=== PATIENT | female | born 1985 | race Caucasian/White ===

== ENCOUNTER → 2023-09-17 14:37 | Outpatient (REF) | payer BC, SELFPAY | LOC: WDC 14:37 | PROVIDERS: ATTENDING PHYSICIAN Nurse Practitioner Adult Health | DX: Z12.31 Encounter for screening mammogram for malignant neoplasm of breast (principal) | CPT/HCPCS: 77063; 77067 ==

== ENCOUNTER → 2024-06-29 11:20 | Outpatient (REF) | payer BC, SELFPAY | LOC: PNTC 11:20 | PROVIDERS: ATTENDING PHYSICIAN Obstetrics & Gynecology | DX: Z36.0 Encounter for antenatal screening for chromosomal anomalies (principal); Z36.82 Encounter for antenatal screening for nuchal translucency | CPT/HCPCS: 36415; 76801; 76813 ==

== ENCOUNTER → 2024-07-26 14:54 | Outpatient (REF) | payer BC, SELFPAY | LOC: PNTC 14:54 | PROVIDERS: ATTENDING PHYSICIAN Obstetrics & Gynecology | DX: O14.90 Unspecified pre-eclampsia, unspecified trimester (principal); Z87.59 Personal history of other complications of pregnancy, childbirth and the puerperium | CPT/HCPCS: 76805 ==

== ENCOUNTER → 2024-08-21 13:51 | Outpatient (REF) | payer BC, SELFPAY | LOC: PNTC 13:51 | PROVIDERS: ATTENDING PHYSICIAN Obstetrics & Gynecology | DX: Z87.59 Personal history of other complications of pregnancy, childbirth and the puerperium (principal); O24.012 Pre-existing type 1 diabetes mellitus, in pregnancy, second trimester; O99.212 Obesity complicating pregnancy, second trimester; O09.522 Supervision of elderly multigravida, second trimester | CPT/HCPCS: 76811; 76817 ==

== ENCOUNTER → 2024-09-20 14:54 | Outpatient (REF) | payer BC, SELFPAY | LOC: PNTC 14:54 | PROVIDERS: ATTENDING PHYSICIAN Student in an Organized Health Care Education/Training Program | DX: O09.819 Supervision of pregnancy resulting from assisted reproductive technology, unspecified trimester (principal); O99.210 Obesity complicating pregnancy, unspecified trimester; O14.00 Mild to moderate pre-eclampsia, unspecified trimester; E10.9 Type 1 diabetes mellitus without complications | CPT/HCPCS: 76816 ==

== ENCOUNTER → 2024-10-17 14:54 | Outpatient (REF) | payer BC, SELFPAY | LOC: PNTC 14:54 | PROVIDERS: ATTENDING PHYSICIAN Student in an Organized Health Care Education/Training Program | DX: O24.019 Pre-existing type 1 diabetes mellitus, in pregnancy, unspecified trimester (principal); O09.819 Supervision of pregnancy resulting from assisted reproductive technology, unspecified trimester; O99.210 Obesity complicating pregnancy, unspecified trimester; Z87.59 Personal history of other complications of pregnancy, childbirth and the puerperium | CPT/HCPCS: 76816 ==

== ENCOUNTER 2024-11-15 18:24 | Observation (INO) | payer BC, SELFPAY ==
[2024-11-15 18:49] VITALS: BP 144/87; BMI 42.9
[2024-11-15 19:44] LABS: Hematocrit 32.3 % (37.0-47.0); Hemoglobin 10.7 g/dL (12.0-16.0); Mean Corp Hgb Conc. 33.1 g/dL (33.0-37.0); Mean Corpuscular Volume 83.5 fL (81.0-99.0); Platelet Count 165 10^3/uL (130-400); Red Cell Dist. Width 15.9 % (11.5-14.5)
[2024-11-15 20:01] LABS: ALT (SGPT) 15 U/L (0-35); AST (SGOT) 23 U/L (14-36); Albumin 3.0 g/dl (3.5-5.0); Alkaline Phosphatase 87 U/L (38-126); Blood Urea Nitrogen 14 mg/dl (7-17); Calcium 8.6 mg/dl (8.4-10.2); Carbon Dioxide 19 mmol/L (22-30); Chloride 109 mmol/L (98-107); Estimated Creatinine Clearance > 125 ml/min; Glucose 102 mg/dl (70-99); Potassium 4.3 mmol/L (3.5-5.1); Sodium 131 mmol/L (135-145); Total Protein 5.6 g/dl (6.3-8.2); eGFR > 60.00
== END 2024-11-16 07:04 | disposition home or self-care (01) ==
LOC: LDRP 18:24
PROVIDERS: ADMITTING PHYSICIAN Student in an Organized Health Care Education/Training Program
DX: O13.3 Gestational [pregnancy-induced] hypertension without significant proteinuria, third trimester (principal); O24.013 Pre-existing type 1 diabetes mellitus, in pregnancy, third trimester; E10.8 Type 1 diabetes mellitus with unspecified complications; Z3A.33 33 weeks gestation of pregnancy; O09.813 Supervision of pregnancy resulting from assisted reproductive technology, third trimester; O09.523 Supervision of elderly multigravida, third trimester; O99.283 Endocrine, nutritional and metabolic diseases complicating pregnancy, third trimester; E03.9 Hypothyroidism, unspecified; O99.213 Obesity complicating pregnancy, third trimester; Z14.8 Genetic carrier of other disease; Z79.4 Long term (current) use of insulin; Z96.41 Presence of insulin pump (external) (internal); Z80.0 Family history of malignant neoplasm of digestive organs; Z83.3 Family history of diabetes mellitus
CPT/HCPCS: 80053; 82570; 84156; 85027; 86850; 86900; 86901; G0378

== ENCOUNTER → 2024-11-20 14:43 | Outpatient (REF) | payer BC, SELFPAY | LOC: PNTC 14:43 | PROVIDERS: ATTENDING PHYSICIAN Student in an Organized Health Care Education/Training Program | DX: O09.819 Supervision of pregnancy resulting from assisted reproductive technology, unspecified trimester (principal); O24.019 Pre-existing type 1 diabetes mellitus, in pregnancy, unspecified trimester; O14.90 Unspecified pre-eclampsia, unspecified trimester; O99.210 Obesity complicating pregnancy, unspecified trimester | CPT/HCPCS: 59025; 76816 ==

== ENCOUNTER → 2024-11-23 14:17 | Outpatient (REF) | payer BC, SELFPAY | LOC: PNTC 14:17 | PROVIDERS: ATTENDING PHYSICIAN Student in an Organized Health Care Education/Training Program | DX: O14.90 Unspecified pre-eclampsia, unspecified trimester (principal); O09.819 Supervision of pregnancy resulting from assisted reproductive technology, unspecified trimester; O99.210 Obesity complicating pregnancy, unspecified trimester; O24.019 Pre-existing type 1 diabetes mellitus, in pregnancy, unspecified trimester | CPT/HCPCS: 59025 ==

== ENCOUNTER 2024-11-25 02:57 | Inpatient (IN) | payer BC, SELFPAY ==
[2024-11-25 03:17] VITALS: BMI 44.5
[2024-11-25 03:26] VITALS: BP 164/102
[2024-11-25 04:24] LABS: Glucose - Point of Care 114 mg/dl (70-99)
[2024-11-25] MEDS: CELESTONE SOLUSPAN 2 MG IM (04:43)
[2024-11-25 04:45] LABS: Hematocrit 33.5 % (37.0-47.0); Hemoglobin 10.9 g/dL (12.0-16.0); Mean Corp Hgb Conc. 32.5 g/dL (33.0-37.0); Mean Corpuscular Volume 83.8 fL (81.0-99.0); Platelet Count 150 10^3/uL (130-400); Red Cell Dist. Width 16.6 % (11.5-14.5)
[2024-11-25 04:53] LABS: ALT (SGPT) 11 U/L (0-35); AST (SGOT) 18 U/L (14-36); Albumin 2.8 g/dl (3.5-5.0); Alkaline Phosphatase 94 U/L (38-126); Blood Urea Nitrogen 16 mg/dl (7-17); Calcium 8.7 mg/dl (8.4-10.2); Carbon Dioxide 22 mmol/L (22-30); Chloride 111 mmol/L (98-107); Estimated Creatinine Clearance > 125 ml/min; Glucose 112 mg/dl (70-99); Potassium 4.1 mmol/L (3.5-5.1); Sodium 134 mmol/L (135-145); Total Protein 5.3 g/dl (6.3-8.2); eGFR > 60.00
[2024-11-25 04:55] LABS: Urine Character Clear (Clear)
[2024-11-25 05:24] LABS: Urine Squamous Cell 16-20 /LPF (Few)
[2024-11-25 05:25] LABS: Urine Red Blood Cell None Seen /HPF (0-2)
[2024-11-25] MEDS: MAGNESIUM SULFATE 100 IV (05:43)
[2024-11-25] MEDS: NSS 1000 IV ×2 (05:45→22:45)
[2024-11-25] MEDS: TRANDATE 20 MG IV (06:01)
[2024-11-25] MEDS: MAGNESIUM SULFATE 40 GRAM 1000 IV (06:07)
[2024-11-25] MEDS: TYLENOL 975 MG PO (06:12)
[2024-11-25] MEDS: BICITRA 30 ML PO (06:13)
[2024-11-25 09:04] LABS: Hematocrit 32.0 % (37.0-47.0); Hemoglobin 10.6 g/dL (12.0-16.0); Platelet Count 164 10^3/uL (130-400)
[2024-11-25 09:23] LABS: INR 0.99; PT 13.4 Sec (11.4-14.6)
[2024-11-25 09:41] LABS: Fibrinogen 388 MG/DL (199-459)
[2024-11-25 13:17] LABS: Glucose - Point of Care 105 mg/dl (70-99)
[2024-11-25 17:48] LABS: Glucose - Point of Care 207 mg/dl (70-99)
[2024-11-25] MEDS: SYNTHROID PO (18:57)
[2024-11-25] MEDS: COLACE 100 MG PO (22:13)
[2024-11-25] MEDS: TYLENOL 650 MG PO (22:14)
[2024-11-25] MEDS: FEOSOL 325 MG PO (22:14)
[2024-11-25 22:20] LABS: Glucose - Point of Care 291 mg/dl (70-99)
[2024-11-26] MEDS: MAGNESIUM SULFATE 40 GRAM 1000 IV (01:49)
[2024-11-26] MEDS: SYNTHROID 88 MCG PO (05:53)
[2024-11-26] MEDS: MOTRIN 600 MG PO ×2 (06:33→16:19)
[2024-11-26] MEDS: TYLENOL 650 MG PO ×3 (06:34→20:48)
[2024-11-26 06:40] LABS: Hematocrit 25.6 % (37.0-47.0); Hemoglobin 8.5 g/dL (12.0-16.0); Mean Corp Hgb Conc. 33.2 g/dL (33.0-37.0); Mean Corpuscular Volume 84.5 fL (81.0-99.0); Platelet Count 171 10^3/uL (130-400); Red Cell Dist. Width 16.5 % (11.5-14.5)
[2024-11-26 08:08] LABS: Glucose - Point of Care 105 mg/dl (70-99)
[2024-11-26] MEDS: FEOSOL 325 MG PO ×2 (08:43→19:48)
[2024-11-26] MEDS: COLACE 100 MG PO ×2 (08:43→19:48)
[2024-11-26] MEDS: PRENATAL PLUS 1 TABLET PO (08:43)
[2024-11-26] MEDS: ROXICODONE 5 MG PO (08:43)
[2024-11-26] MEDS: NSS IV (12:07)
[2024-11-26] MEDS: ROXICODONE 10 MG PO ×3 (12:43→21:19)
[2024-11-26 13:44] LABS: Glucose - Point of Care 137 mg/dl (70-99)
[2024-11-26] MEDS: MYLICON 80 MG PO (16:20)
--- NOTE | 2024-11-26 16:37 | W.PN.ANS.POP ---
Anesthesia Post Operative
- Anesthesia Post Op Note
Vital Signs Stable-See Nursing Note: Yes
Airway Patent: Yes
Adequate Pain Control: Yes
Change in Mental Status: No
Current Postoperative Nausea & Vomiting: No
Anesthesia Complications: No
General Anesthetic Recall: No
Unplanned Admission: No
Post Op Hydration Adequate: Yes
[2024-11-26 19:44] LABS: Glucose - Point of Care 147 mg/dl (70-99)
[2024-11-27] MEDS: MOTRIN 600 MG PO ×4 (00:43→21:22)
[2024-11-27] MEDS: TYLENOL 650 MG PO ×2 (00:43→05:38)
[2024-11-27 00:59] LABS: Glucose - Point of Care 142 mg/dl (70-99)
[2024-11-27] MEDS: ROXICODONE 10 MG PO ×3 (03:34→21:22)
[2024-11-27] MEDS: SYNTHROID 88 MCG PO (05:38)
--- NOTE | 2024-11-27 07:48 | PN.DE.MGMTRT ---
Insulin Management
- -
11/27/2024: Diabetes Consult for insulin pump management
39 year old female with PMH: T1DM, PCOS, Obesity and hypothyroidism. Admitted on 11/25 for preeclampsia with severe features at 34W2D. She underwent emergent on 11/25 and delivered a viable female infant. Prior to admission she was
using a Tandem t-slim (Humalog insulin) with control IQ pump and Dexcom G6 CGM. Routinely sees Jazmin GRIFFIN at [facility] for diabetes care.
Patient is awake, alert, oriented, sitting up @ edge of bed, able to discuss diabetes care plan. at bedside.
She is currently using her 3rd trimester profile that is only ~1.1 units of insulin more than her pre- profile.
Her pump settings are as follows:
Basal CF ICR Target
12am-6am 1.15 1:25 1:5 110
6am- 9am 1.35 1:25 1:5 110
9am- 3:30pm 1.35 1:25 1:3 110
3:30-8:30pm 1.5 1:25 1:3 110
8:30-12am 1.4 1:25 1:2.5 110
Total daily basal 32.125 units. Active insulin 5 hours
Cont Accucheks ACHS and at 3am. Pt has insulin pump worksheet at bedside. She is independent with carb counting and administering bolus insulin with meals
Will cont to follow and adjust pump settings if necessary.
Diabetes History
- -
Type of Diabetes: 1
Pre-Admission Diabetes Regimen
Insulin Pump Settings
IP Diabetes Regimen
11/26/24 11/26/24 11/26/24
08:06 13:33 19:41
POC Glucose 105 H 137 H 147 H
11/27/24
00:57
POC Glucose 142 H
Patient Education
[2024-11-27] MEDS: COLACE 100 MG PO ×2 (08:36→19:45)
[2024-11-27] MEDS: PROCARDIA XL (EXTENDED RELEASE) 30 MG PO ×2 (08:36→18:04)
[2024-11-27] MEDS: FEOSOL 325 MG PO ×2 (08:36→19:45)
[2024-11-27] MEDS: PRENATAL PLUS 1 TABLET PO (08:36)
[2024-11-27] MEDS: ROXICODONE 5 MG PO ×2 (08:38→08:48)
[2024-11-27 08:47] LABS: Glucose - Point of Care 98 mg/dl (70-99)
[2024-11-27 14:05] LABS: Glucose - Point of Care 160 mg/dl (70-99)
[2024-11-27 19:50] LABS: Glucose - Point of Care 153 mg/dl (70-99)
[2024-11-27] MEDS: PT'S OWN INSULIN PUMP - HumaLOG 16.66 UNIT SC (19:50)
[2024-11-28] MEDS: PT'S OWN INSULIN PUMP - HumaLOG 1.55 UNIT SC (00:25)
[2024-11-28 00:28] LABS: Glucose - Point of Care 146 mg/dl (70-99)
[2024-11-28] MEDS: MYLICON 80 MG PO (00:41)
[2024-11-28] MEDS: SYNTHROID 88 MCG PO (05:38)
[2024-11-28] MEDS: MOTRIN 600 MG PO (05:38)
[2024-11-28] MEDS: TYLENOL 650 MG PO (05:38)
[2024-11-28] MEDS: COLACE 100 MG PO (07:36)
[2024-11-28] MEDS: PROCARDIA XL (EXTENDED RELEASE) 60 MG PO (07:36)
[2024-11-28] MEDS: FEOSOL 325 MG PO (07:36)
[2024-11-28] MEDS: PRENATAL PLUS 1 TABLET PO (07:38)
[2024-11-28] MEDS: SENOKOT 17.2 MG PO (07:45)
--- NOTE | 2024-11-28 07:56 | PN.DE.MGMTRT ---
Insulin Management
- -
11/28/2024: Diabetes Consult for insulin pump management
39 year old female with PMH: T1DM, PCOS, Obesity and hypothyroidism. Admitted on 11/25 for preeclampsia with severe features at 34W2D. She underwent emergent on 11/25 and delivered a viable female infant. Prior to admission she was
using a Tandem t-slim (Humalog insulin) with control IQ pump and Dexcom G6 CGM. Routinely sees Jazmin GRIFFIN at [facility] for diabetes care.
Patient is awake, alert, oriented, sitting up @ edge of bed, able to discuss diabetes care plan. at bedside, very supportive.
She is currently using her 3rd trimester profile that is only ~1.1 units of insulin more than her pre- profile.
Her pump settings are as follows:
Basal CF ICR Target
12am-6am 1.15 1:25 1:5 110
6am- 9am 1.35 1:25 1:5 110
9am- 3:30pm 1.35 1:25 1:3 110
3:30-8:30pm 1.5 1:25 1:3 110
8:30-12am 1.4 1:25 1:2.5 110
Total daily basal 32.125 units. Active insulin 5 hours
Cont Accucheks ACHS and at 3am. Pt has insulin pump worksheet at bedside. She is independent with carb counting and administering bolus insulin with meals
Will cont to follow and adjust pump settings if necessary.
Patient will resume her pre- insulin delivery settings today.
Diabetes History
- -
Type of Diabetes: 1
Pre-Admission Diabetes Regimen
Insulin Pump Settings
IP Diabetes Regimen
11/27/24 11/27/24 11/27/24
08:41 14:00 19:48
POC Glucose 98 160 H 153 H
11/28/24
00:26
POC Glucose 146 H
Patient Education
[2024-11-28] MEDS: PT'S OWN INSULIN PUMP - HumaLOG 9.6 UNIT SC (08:30)
[2024-11-28 08:53] LABS: Glucose - Point of Care 92 mg/dl (70-99)
--- NOTE | 2024-11-28 09:20 | W.DS.TRANS ---
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
-
Discharge Instructions:
Discharge Diagnosis/Procedures 34.5wks delivered by primary LTCS;
preeclampsia severe features
Diet Regular
Activity No strenuous activity
Driving Restrictions No driving for 2 weeks
Bathing Restrictions OK to Shower
Instructions:
Stand-Alone Forms: LDRP Delivery
LDRP Hypertensive Disorders
Changes to Home Medications: No
Discharge Medications:
DC Medications w/original date entered in [employer]
insulin lispro 100 unit/mL subcutaneous cartridge (Humalog U-100 Insulin) 1 sliding scale dose SC DIRECTED Diabetes 01/20/22
levothyroxine 100 mcg tablet 88 mcg PO DAILY Thyroid 01/20/22
prenat.vits,prasanth,[id number] 1 tab PO DAILY Supplement 01/20/22
Metamucil Gummies 1 tab PO PRN PRN constipation 01/26/22
ferrous sulfate 325 mg (65 mg iron) tablet (FeroSul) 325 mg PO BID #90 tabs 02/02/22
ibuprofen 600 mg tablet 600 mg PO Q6HPRN PRN cramps #90 tabs 11/28/24
nifedipine 60 mg tablet,extended release 60 mg PO DAILY #42 tabs 11/28/24
oxycodone 5 mg tablet 5 mg PO Q4HPRN PRN moderate pain #12 tabs 11/28/24
Home Medication Changes
Pending Results: No
Total time spent discharging patient (in min): 15
[2024-11-28] MEDS: ROXICODONE 5 MG PO (09:44)
[2024-11-28 15:21] LABS: Syphilis/T. pallidum Ab Reflex Negative (Negative)
== END 2024-11-28 13:43 | disposition home or self-care (01) | DRG 788 ==
LOC: LDRP 02:57
PROVIDERS: ADMITTING PHYSICIAN Obstetrics & Gynecology
PROC: 10D00Z1 Extraction of Products of Conception, Low, Open Approach (ICD-10-PCS; 2024-11-25)
DX: O14.14 Severe pre-eclampsia complicating childbirth (principal); Z37.0 Single live birth; Z3A.34 34 weeks gestation of pregnancy; O34.211 Maternal care for low transverse scar from previous cesarean delivery; O24.02 Pre-existing type 1 diabetes mellitus, in childbirth; O72.1 Other immediate postpartum hemorrhage; O90.81 Anemia of the puerperium; D50.0 Iron deficiency anemia secondary to blood loss (chronic); O99.284 Endocrine, nutritional and metabolic diseases complicating childbirth; E03.9 Hypothyroidism, unspecified; E66.01 Morbid (severe) obesity due to excess calories; O99.214 Obesity complicating childbirth; Z96.41 Presence of insulin pump (external) (internal); Z79.4 Long term (current) use of insulin; Z79.82 Long term (current) use of aspirin
CPT/HCPCS: 80053; 81003; 81015; 82570; 82962; 84156; 85014; 85018; 85027; 85049; 85384; 85610; 86780; 86850; 86900; 86901; 88307

== ENCOUNTER 2024-12-15 22:01 | Inpatient (IN) | payer BC, SELFPAY ==
[2024-12-15 17:19] VITALS: BP 167/98
[2024-12-15 17:47] VITALS: BP 159/93
[2024-12-15 18:00] VITALS: BP 156/91
[2024-12-15 18:02] LABS: Urine Character Clear (Clear)
[2024-12-15 18:03] LABS: Hematocrit 35.6 % (37.0-47.0); Hemoglobin 11.2 g/dL (12.0-16.0); Mean Corp Hgb Conc. 31.5 g/dL (33.0-37.0); Mean Corpuscular Volume 85.2 fL (81.0-99.0); Nucleated Red Blood Cells % 0 %; Platelet Count 294 10^3/uL (130-400); Red Cell Dist. Width 16.3 % (11.5-14.5)
[2024-12-15 18:15] LABS: Urine Squamous Cell >30 /LPF (Few)
[2024-12-15 18:19] LABS: ALT (SGPT) 46 U/L (0-35); AST (SGOT) 45 U/L (14-36); Albumin 4.3 g/dl (3.5-5.0); Alkaline Phosphatase 111 U/L (38-126); Blood Urea Nitrogen 12 mg/dl (7-17); Calcium 9.1 mg/dl (8.4-10.2); Carbon Dioxide 23 mmol/L (22-30); Chloride 103 mmol/L (98-107); Glucose 183 mg/dl (70-99); Potassium 4.6 mmol/L (3.5-5.1); Sodium 135 mmol/L (135-145); Total Protein 7.2 g/dl (6.3-8.2); eGFR > 60.00
[2024-12-15] MEDS: NSS 1000 IV ×2 (18:28→20:15)
[2024-12-15] MEDS: TYLENOL 1000 MG PO (18:56)
[2024-12-15 19:06] VITALS: BP 147/84
--- NOTE | 2024-12-15 19:20 | ED.GENMED ---
History of Present Illness
General
Chief Complaint: Problems
Source: patient and spouse
Exam Limitations: none
Time Seen by Provider: 12/15/24 17:56
History of Present Illness
History of Present Illness:
39-year-old female came in primarily for right lower to mid back pain. Relatively sudden onset today. Has had dizziness the last week. Some mild chills at home. No urinary symptoms no abdominal pain no respiratory symptoms. Patient is 3 weeks
. She had history of preeclampsia. She is on nifedipine. Also diabetic. Blood sugars have been reasonable.
Past History
Past History
ED Past Medical History: IDDM and Other (Christianne's)
ED Past Surgical History: Appendectomy and Gynecological
Social History
Tobacco: Non-smoker
Alcohol: None
Drug: None
Personal:
Living: with family
Review of Systems
Review of Systems
All Other Systems: Not applicable
Constitutional: Reports chills; Denies fever
Respiratory: Reports no symptoms
ABD/GI: Denies abdominal pain
: Denies dysuria, frequency or urgency
Phy Exam
Physical Exam
Physical Exam:
GENERAL: Alert and oriented in no apparent distress
EYE: Orbits normal.
NECK: Supple, no significant adenopathy.
ENT: Pharynx without erythema
CARDIAC: Mildly tachycardic and regular no murmur
LUNGS: Clear breath sounds,normal. Breast exam within normal limits. No mastitis
ABDOMEN: Soft, without focal tenderness or distention. Well-healing incision. Minimal erythema to the right suture line but no drainage no fluctuance no tenderness. No CVA tenderness
NEUROLOGICAL: Alert and oriented , grossly non-focal
SKIN: Warm and dry, no rash or lesion, no discoloration, skin intact.
MUSCULOSKELETAL: No edema,no deformity.Good color
PSYCH: Normal and appropriate interaction.
Sepsis
Sepsis Screening
Sepsis Assessment: Sepsis
Sepsis Screen
Sepsis Screen: Sepsis
Date: 12/16/24
Time: 16:50
Course
Orders/Labs/Results
Orders:
Orders
12/15/24 17:27
CONSULT Urgent
Comment: 3 weeks post
12/15/24 17:59
CMP [Comprehensive Metabolic Panel] Urgent
Complete Blood Count/With Diff Urgent
Free T4 Urgent
TSH Reflex To Free T4 Urgent
Comment: ADD ON
Urinalysis Reflex To Culture Urgent
Date Specimen was Collected: 12/15/24
Time Specimen was Collected: 17:29
Urine Microscopic Reflex Cult Urgent
Urine Culture Urgent
JACKELINE Source: U
Specimen Description:
Date Specimen was Collected: 12/15/24
Time Specimen was Collected: 17:29
12/15/24 18:12
CT Head W/o Iv Contrast Urgent
Comment:
Reason For Exam: headache/preeclampsia history
IV Insert/Care/Rem.- Treatment PRN
0.9% Sodium Chloride 1000 ml [Nss] 1,000 ml IV BOLUS
12/15/24 18:52
Acetaminophen [Tylenol] 1,000 mg PO NOW STA
12/15/24 18:53
CT Abd/Pel (IV only)-DH only Urgent
Comment:
Reason For Exam: Back pain/fever
12/15/24 18:54
Add On- LAB Urgent
Tests Added?: tsh reflex t4
CXR2 [CR Chest - 2 Views ] Urgent
Comment:
Reason For Exam: Fever/back pain
12/15/24 19:02
COVID-19 Antigen Urgent
Source: Nasal Swab
Lactic Acid Q4H
Comment: CANCEL 2nd LACTIC ACID IF 1st LACTIC ACID IS LESS THAN 2
Blood Culture Q30M
JACKELINE Source: Blood/Venous
Specimen Description:
Blood Culture Q30M
JACKELINE Source: Blood/Venous
Specimen Description:
12/15/24 19:23
0.9% Sodium Chloride 1000 ml [Nss] 1,000 ml IV BOLUS
Piperacillin/Tazo 4.5 Gram [Zosyn] 4.5 gram in 100 ml IV NOW
12/15/24 20:27
Urinalysis Reflex To Culture Urgent
Date Specimen was Collected: 12/15/24
Time Specimen was Collected: 20:22
Urine Microscopic Reflex Cult Urgent
Urine Culture Urgent
JACKELINE Source: U
Specimen Description:
Date Specimen was Collected: 12/15/24
Time Specimen was Collected: 20:22
12/15/24 20:33
Lyme Progressive Urgent
Babesia Smear [Blood Parasites] Urgent
JACKELINE Source: Blood/Venous
Specimen Description:
12/15/24 21:06
US Pelvis Only (non-obstetric) Urgent
Comment:
Reason For Exam: eval CT suggestion of retained products
12/15/24 21:29
Admit/Transfer Patient As Directed
Co-Sign Provider:
Level of Care: Inpatient admission
Assign to:: Medical/Surgical
Physician / Group: Hospitalist
Diagnosis: Fever and back pain
Reason for Hospitalization: Fever and back pain post
Expected length of stay greater than two midnights?: Yes
ELOS- Estimated Length of Stay in days: 3
I certify the patient meets the requirements for IP care: Yes
PRN Pain Medication Management As Directed
May give lesser potent ordered pain med per pt: Yes
preference::
Protocol:: Medication orders for pain may be administered in a
manner that supports deferring to patient preference
when the pt is:
- Requesting an ordered lesser potent pain medication.
Least to most potent pain medications are defined
as: acetaminophen < NSAID < tramadol < opioids
(morphine, oxycodone, hydromorphone).
- Requesting a lesser dose of the same medication IF
ORDERED.
- Requesting a less intrusive route of administration
if both routes are prescribed by the provider (PO <
IV).
12/15/24 21:32
Code Status As Directed
Resuscitation Status: Full Code
12/15/24 22:38
Acetaminophen [Tylenol] 650 mg PO Q4HPRN PRN
Bisacodyl [Dulcolax] 10 mg RECTAL [id number] PRN
Docusate W/Senna [Senokot-S] 1 tablet PO BIDPRN PRN
Ibuprofen [Motrin] 600 mg PO Q6HPRN PRN cramps
Oxycodone [Roxicodone] 5 mg PO Q4HPRN PRN moderate pain
Polyethylene Glycol Powder [Miralax] 17 grams PO DAILYPRN PRN
12/15/24 22:38
Activity As Directed
Activity Level: Ambulate
Pneumatic Compression Sleeves As Directed
Type: Knee high
Vital Signs As Directed
Frequency: Per unit guidelines
DX Deep Vein Thrombosis Video Routine
12/15/24 22:49
Psyllium [Metamucil, Konsyl] 1 packet PO DAILYPRN PRN
12/16/24 02:00
Piperacillin/Tazo 4.5 Gram [Zosyn] 4.5 gram in 100 ml IV Q6H
12/16/24 Breakfast
Regular
At Your Request: Full Participation
Does patient need a safe tray?: No
Levothyroxine [Synthroid] 88 mcg PO DAILY @ 0600
12/16/24 07:51
Complete Blood Count/No Diff IN AM
12/16/24 08:00
Ferrous Sulfate [Feosol] 325 mg PO BID
NIFEdipine EXTENDED RELEASE [Procardia Xl (Extended Release)] 60 mg PO DAILY
MULTIPLE VITAMIN w/FE [ Plus] 1 tablet PO DAILY
Abnormal Lab Results
12/15/24 12/15/24
17:59 20:27
WBC 11.6 H 10^3/uL
(4.8-10.8)
RBC 4.18 L 10^6/uL
(4.20-5.40)
Hgb 11.2 L g/dL
(12.0-16.0)
Hct 35.6 L %
(37.0-47.0)
MCH 26.8 L pg
(27.0-31.0)
MCHC 31.5 L g/dL
(33.0-37.0)
RDW 16.3 H %
(11.5-14.5)
MPV 11.2 H fL
(7.4-10.4)
Absolute Neuts (auto) 9.5 H 10^3/uL
(1.4-6.5)
Neutrophils % 82.1 H %
(42.2-75.2)
Lymphocytes % 12.8 L %
(20.5-51.1)
Glucose 183 H mg/dl
(70-99)
AST 45 H U/L
(14-36)
ALT 46 H U/L
(0-35)
TSH (Reflex) 0.03 L uIU/ml
(0.47-4.68)
Ur Occult Blood Reflex 4+ A 4+ A
(Negative) (Negative)
Leukocyte Esterase Rfl 1+ A
(Negative)
Urine RBC 11-15 A /HPF 3-6 A /HPF
(0-2) (0-2)
Urine WBC (Reflex) 26-30 A /HPF
(0-5)
Urine Bacteria (Reflex) Moderate A Moderate A
(Negative) (Negative)
Urine Glucose 1+ A
(Negative)
Urine Albumin (Reflex) 1+ A
(Neg - Trace)
12/15/24 17:59
12/15/24 17:59
Vital Signs
Initial and Last Documented VS:
Initial Vital Signs
Temp Pulse Resp BP Pulse Ox
98.8 F 92 18 167/98 100
12/15/24 17:19 12/15/24 17:19 12/15/24 17:19 12/15/24 17:19 12/15/24 17:19
Last Documented Vital Signs
Temp Pulse Resp BP Pulse Ox
98.7 F 106 16 130/79 97
12/16/24 15:30 12/16/24 15:30 12/16/24 15:30 12/16/24 15:30 12/16/24 15:30
Information
Weeks gestation: N/A
Location: N/A
MDM/Problems Addressed
Differential Diagnosis Includes:
Initially was more concerned about the possibility of preeclamptic issue or vascular emergency given the sudden mid back pain and . Initially was not truly describing infectious issues. However on recheck like if temp to 102.9 this
clearly becomes an infectious issue. She has no respiratory symptoms her abdomen is nontender. Suspicious of either an endometritis or urologic issue. Patient current receiving fluids. Received Tylenol. Sent to CT scan. Will cover with Zosyn
to start. Clearly requires admission.
*Radiology
Radiology exam reviewed: radiology read reviewed (Negative head CT. Right nephric cyst with some edema and stranding)
*Pulse Oximetry
SaO2: 98
Oxygen Mode of Delivery: Room air
Patient hypoxic: no
*Cloth Hand Interpretation
Rate: tachycardiac
Interpretation: abnormal
Heart Rate: 140
Rhythm: sinus
*Critical Care Note
Total Time (30-74mins, 75-104mins- exclusive of procedures): 45
Data Reviewed
Review of Other/Old Records Reveals: Labs, Records and Testing
Update Note
Update Note:
Not convinced that the cyst is the explanation for this fever and tachycardia. Patient is clinically nontoxic but significant tachycardia secondary to fever and infectious source. No mastitis. Abdomen is benign. Incision appears well. Urine is
likely contaminated but likely negative. I did order repeat urine. She has no respiratory symptoms. Will cover with Zosyn. Vancomycin would likely be safe with breast-feeding but low suspicion for MRSA issues. Will hold on that for now
ED Attending Note
-
Portions of this chart may have been created with voice recognition software.� Occasional wrong word or��sound alike� substitutions may have occurred due to the inherent limitations of voice recognition software.
Discharge Plan
Departure
Patient Disposition: Admit
Date of Disposition: 12/15/24
Time of Disposition: 20:20
Presentation/result/management discussed w/ accepting MD/DO: Celestine
Discharge Problem:
Back pain fever, , Suspect pyelonephritis
Interventions
Interventions:
*Risk Screen - Suicide Last Done: 12/15/24 17:22
*Neglect/Abuse Screening Last Done: 12/15/24 17:22
*ED COVID-19 Vaccine History Last Done: 12/16/24 00:01
*Nursing Disposition Last Done: 12/15/24 22:25
ED-Female Genitourinary Assessment Last Done: 12/15/24 18:02
Discharge Date and Time
Discharge Date/Time: 12/15/24 22:25
[2024-12-15 19:28] LABS: COVID-19 Antigen Negative (Negative)
[2024-12-15] MEDS: ZOSYN 100 IV (20:15)
[2024-12-15 20:45] LABS: Urine Character Clear (Clear)
[2024-12-15 20:58] LABS: Urine Squamous Cell >30 /LPF (Few)
[2024-12-15 21:00] VITALS: BP 127/73
[2024-12-15 21:00] LABS: Urine White Cell 26-30 /HPF (0-5)
--- NOTE | 2024-12-15 21:20 | HPS.HSE ---
Family Physician
-
Family Physician: NAZARIO Elizabeth
Chief Complaint
-
Back pain
History of Present Illness
39-year-old woman with right lower to mid back pain. This had sudden onset today and she had dizziness last week. Also reports mild chills at home. No urinary symptoms no abdominal pain no respiratory symptoms. Patient is 3 weeks .
She had history of preeclampsia. She is on nifedipine. She is a IDDM diabetic. Blood sugars have been reasonable. At the time of my interview, she was comfortable. Her baby in in the NICU.
Medical History
Past Medical History
Past Medical History: Reports Other
Additional Past Medical History:
IDDM, has CGM and pump
Christianne's
Appendectomy
Diabetes Type 1
Hypothyroidism
Obesity
egg retrieval
breast cyst
breast cyst abscess
preeclampsia
Past Surgical History: Reports Other
Additional Past Surgical History:
See above
Social History
Tobacco: Non-smoker
Alcohol: None
Drug: None
Personal:
Living: With Family
Family History
Family History: Not pertinent
Allergies / Home Medications
Allergies reflects when Allergies were last updated in [employer].
Home Medications with original date entered in [employer]
Allergy/Medication List:
Allergies
Allergy/AdvReac Type Severity Reaction Status Date / Time
No Known Allergies Allergy Verified 11/25/24 03:20
Home Medications
insulin lispro 100 unit/mL subcutaneous cartridge (Humalog U-100 Insulin) 1 sliding scale dose SC DIRECTED Diabetes 01/20/22
levothyroxine 100 mcg tablet 88 mcg PO DAILY Thyroid 01/20/22
prenat.vits,prasanth,[id number] 1 tab PO DAILY Supplement 01/20/22
Metamucil Gummies 1 tab PO PRN PRN constipation 01/26/22
ferrous sulfate 325 mg (65 mg iron) tablet (FeroSul) 325 mg PO BID #90 tabs 02/02/22
ibuprofen 600 mg tablet 600 mg PO Q6HPRN PRN cramps #90 tabs 11/28/24
nifedipine 60 mg tablet,extended release 60 mg PO DAILY #42 tabs 11/28/24
oxycodone 5 mg tablet 5 mg PO Q4HPRN PRN moderate pain #12 tabs 11/28/24
Review of Systems
-
A 12 point ROS was completed and negative except as noted: Yes
Constitutional: Reports No Symptoms
Musculoskeletal: Reports Other (back pain)
Physical Exam
Vital Signs
Vital Signs
Temp Pulse Resp BP Pulse Ox
102.5 F H 120 28 127/73 97
12/15/24 18:57 12/15/24 21:15 12/15/24 21:15 12/15/24 21:00 12/15/24 21:15
Physical Exam
General: Well Developed, Well Nourished, No Apparent Distress, Comfortable and Conversant
HEENT: Nose Appears Normal and Ears Appear Normal
Respiratory: Clear
Cardiac: S1/S2 and Regular Rhythm
GI: Soft, Non Tender and Non Distended
Musculoskeletal: No Clubbing, No Cyanosis and No Edema
Skin: Warm and Dry
Neuro: Awake, Alert, Oriented and AO x 3
Psych: Calm
Laboratory Results
-
12/15/24 17:59
12/15/24 17:59
Laboratory Results
Lactic Acid Cancelled 12/15/24 23:00
Total Bilirubin 0.6 mg/dl (0.2-1.3) 12/15/24 17:59
AST 45 U/L (14-36) H 12/15/24 17:59
ALT 46 U/L (0-35) H 12/15/24 17:59
Alkaline Phosphatase 111 U/L (38-126) 08/01/25 17:59
Data Reviewed
-
Lab Data: Labs Reviewed by me
Impression/Plan
-
IMPRESSION:
39 woman with fever and back pain after delivery. CT shows:
Two centimeter cyst arising from the posterior upper pole the right kidney.
Mild adjacent perinephric space edema, suggesting the possibility of partially ruptured cyst.
Enlarged uterus compatible with state.
Increased density within the lower uterine endometrial canal, likely within normal limits in this patient, but please correlate with any abnormal bleeding that would suggest retained products of conception.
PLAN:
1. Fever and back pain post - OBGYN involved in care. See CT results above, WBC 11.6
Post care and treatment of possible infection per OBGYN team
Management of breast milk per OBGYN team
On zosyn
Check labs in am
2. IDDM - with adequate control at this time
Patient may use own CGM and insulin pump
This may change if there is worsening infection
Code: Full
VCD for DVTp
[2024-12-15 22:42] VITALS: BMI 39.7
[2024-12-15 23:21] VITALS: BP 112/66
[2024-12-16 00:13] LABS: Glucose - Point of Care 130 mg/dl (70-99)
[2024-12-16] MEDS: ZOSYN 100 IV ×2 (02:21→09:01)
[2024-12-16] MEDS: SYNTHROID 88 MCG PO (06:06)
[2024-12-16] MEDS: TYLENOL 650 MG PO ×4 (06:11→19:25)
[2024-12-16 07:00] VITALS: BP 113/75
[2024-12-16 08:05] LABS: Glucose - Point of Care 131 mg/dl (70-99)
[2024-12-16 08:14] LABS: Hematocrit 29.6 % (37.0-47.0); Hemoglobin 9.4 g/dL (12.0-16.0); Mean Corp Hgb Conc. 31.8 g/dL (33.0-37.0); Mean Corpuscular Volume 84.8 fL (81.0-99.0); Platelet Count 213 10^3/uL (130-400); Red Cell Dist. Width 17.2 % (11.5-14.5)
[2024-12-16 08:32] LABS: Blood Urea Nitrogen 11 mg/dl (7-17); Calcium 8.6 mg/dl (8.4-10.2); Carbon Dioxide 26 mmol/L (22-30); Chloride 106 mmol/L (98-107); Estimated Creatinine Clearance > 125 ml/min; Glucose 128 mg/dl (70-99); Potassium 3.8 mmol/L (3.5-5.1); Sodium 135 mmol/L (135-145); eGFR > 60.00
--- NOTE | 2024-12-16 08:32 | CON.ID ---
Consultation
-
Date/Time Consultation Requested: December 16, 2024804
Date/Time Consultation Performed: December 16, 2024 0830
Requesting Provider: Dr. Su Andres
Performing Provider: Dr. Daysi Brasher
Reason for Consultation: , bacteremia
Chief Complaint / Past History
Chief Complaint
Acute back pain.
History of Present Illness
39-year-old female with history of diabetes mellitus type 1, PCOS, who is currently when she underwent unscheduled due to preeclampsia on November 25, 2024. She was doing well at home when yesterday she suddenly developed mid back
pain which then moved to the right flank. She reports recent urinary urgency with minimal urine output. Positive subjective fever. She presented to the ER December 15. She had shaking chills in the ER. Temperature was 102.5. White count 13. CT
of the abdomen and pelvis showed right renal cyst with mild adjacent perinephric spaces edema suggesting partially ruptured cyst, uterus with increased density within the lower uterine. She was started on Zosyn. Admission blood cultures
x 2 gram-negative rods. Patient reports no abdominal pain. This pelvic incision site is healing well. No diarrhea. No cough or shortness of breath. Breast is a little warm and she was seen by the nurse who ruled out mastitis and
recommend that she must pump for breast milk regularly. Her is in the NICU, planning for discharge today.
Past History
Additional Past Medical History:
Diabetes mellitus type I
Hypothyroidism
PCOS
Class III obesity
hx pre-eclampsia
x2, most recent November 25, 2024
Appendectomy
Allergy History:
No Known Allergies Allergy (Verified 11/25/24 03:20)
Medications Reviewed: Yes
Current Antibiotics:
Zosyn
Social History
Tobacco: Non-Smoker
Alcohol: None
Drug: None
Personal:
Living: With Family
Family History
Family History: Not Pertinent
Review of Systems
Review of Systems
General: Fever and Change in Appetite
HEENT: Negative Sinus Problems, Headache or Pharyngitis
Cardiovascular: Negative Chest Pain
Respiratory: Negative Dyspnea or Cough
Gasteroenterology: Negative Nausea, Vomiting or Diarrhea
Genital / Urological: Flank Pain (right)
Endocrine: Negative Weakness
Skin / Hair / Nails: Negative Rash
All systems: All other systems were reviewed and were negative
Vital Signs
Temp Pulse Resp BP Pulse Ox
99.6 F 108 18 112/66 97
12/16/24 06:00 12/15/24 23:21 12/15/24 23:21 12/15/24 23:21 12/15/24 23:21
Selected Entries
12/15/24
18:57
Temp 102.5 F H
Physical Exam
Physical Exam
Constitutional: No Acute Distress and Comfortable
Eyes: No Conjunctival Hemorrhage and Sclera Anicteric
Cardiovascular: Regular Rate and S1/S2
Pulmonary: Clear
Gastrointestinal: Soft, Non Tender, Non Distended and Normal Bowel Sounds
Genito-Urinary: CVA Tenderness (Right, mild)
Extremities: Negative Edema
Wound: Other (low pelvis incsion site dry, no surrounding erythema)
Neurological: AO x 3
Lab / Diagnostic Study Results
12/16/24 07:51
Abs Immat Gran (auto) 0.0 10^3/uL (0-0.05) 12/15/24 17:59
Absolute Neuts (auto) 9.5 10^3/uL (1.4-6.5) H 12/15/24 17:59
Absolute Lymphs (auto) 1.5 10^3/uL (1.2-3.4) 12/15/24 17:59
Absolute Monos (auto) 0.4 10^3/uL (0.1-0.6) 12/15/24 17:59
Absolute Basos (auto) 0.1 10^3/uL (0-0.2) 12/15/24 17:59
Immature Gran % 0.3 % (0-0.5) 12/15/24 17:59
Neutrophils % 82.1 % (42.2-75.2) H 12/15/24 17:59
Lymphocytes % 12.8 % (20.5-51.1) L 12/15/24 17:59
Monocytes % 3.5 % (1.7-9.3) 12/15/24 17:59
Eosinophils % 0.9 % (0-6) 12/15/24 17:59
Basophils % 0.4 % (0-2) 12/15/24 17:59
Lactic Acid Cancelled 12/15/24 23:00
Ur Squamous Epith Cells >30 /LPF (Few) 12/15/24 20:27
Microbiology Results
Micro:
12/16/24 07:51 Blood Parasites Smear - Pending
Blood/Venous
12/15/24 19:02 Blood Culture - Preliminary
Blood/Venous Positive culture in progress
Gram Stain - Final
12/15/24 19:02 Blood Culture - Preliminary
Blood/Venous Positive culture in progress
Gram Stain - Final
12/15/24 20:27 Urine Culture - Pending
Urine
12/15/24 17:59 Urine Culture - Pending
Urine
12/15/24 Transvaginal US: Within the lower uterine segment canal and extending into the superior cervical canal, ovoid complex predominately hypoechoic collection, which is likely complex fluid
12/15/24 CXR: No evidence of active cardiopulmonary disease.
12/15/24 CT a/P: Two centimeter cyst arising from the posterior upper pole the right kidney. Mild adjacent perinephric space edema, suggesting the possibility of partially ruptured cyst. Enlarged uterus compatible with state. Increased
density within the lower uterine endometrial canal, likely within normal limits in this patient, but please correlate with any abnormal bleeding that would suggest retained products of conception.
Assessment / Plan
# Complicated UTI/R pyelo
# GNR bacteremia
# Fever
# Leukocytosis
# Post- C section 11/25/24
# DM1
- Repeat blood cx's in am
- De-escalate Zosyn to ceftriaxone.
- Trend temps/wbc
Care Review
Plan reviewed with: Nurse
[2024-12-16] MEDS: FEOSOL 325 MG PO ×2 (09:01→19:17)
[2024-12-16] MEDS: PRENATAL PLUS 1 TABLET PO (09:01)
[2024-12-16] MEDS: PROCARDIA XL (EXTENDED RELEASE) 60 MG PO (09:02)
--- NOTE | 2024-12-16 09:40 | LACTATION ---
Celine complains of breast tenderness and warm to the touch on the left. she had been pumping 7 times per day and she hasn't pumped in over 12 hours. she says the last time she pumped she only collected a very small amount of milk. I palpated her
breast and found that there was lumpiness and slightly warm to the touch. this is expected given she is overdue to pump. I sat with her while she pumped. she collected about 3 oz. from left breast and 1 oz. from right breast. this is a typical
amount for her. the small lumps in her breasts were no longer palpable after pumping.
she may notice decreased milk output for the remainder of the day or next few days because she missed so many pumping sessions in the past 24 hours.
she is currently taking zosyn which is rated L2 (probably compatible with ) by [email or web address]
--- NOTE | 2024-12-16 10:00 | W.PN.HOSP.TC ---
Today's Communication/Plan
-
IV AB
Watch
Assessment / Plan
Assessment / Plan
39 y/o female with right lower to mid back pain. Started on 12/15/2024 also with some chills. She is 3 weeks . History of preeclampsia on nifedipine.
Patient delivered at 34.5 weeks by transverse section for preeclampsia. Discharged on 11/28/2024. Patient had mild back discomfort for the past couple of days yesterday stress really bad more towards a right flank area. When asked if she
had urinary symptoms states that she had increased frequency and she has been drinking more water
Transvaginal ultrasound-within the lower uterine segment canal and extending to the superior cervical canal ovoid complex predominantly hypoechoic collection likely complex fluid likely represent blood products within the endometrial canal
Transabdominal USS- Enlarged uterus. Poor visualization.Hypoechoic region within the central lower uterine segment, suggestive of fluid. No increase in vascularity by color flow.Neither ovary is able to be visualized. No evidence for abnormal
adnexal mass or free pelvic fluid.
Chest x-ray unremarkable
CT abdomen pelvis-2 cm cyst arising from the posterior upper pole of the right kidney. Mild adjacent perinephric space edema suggestive of possible partially ruptured cyst. Enlarged uterus compatible with state increased density within
the uterine endometrial canal possible retained products of conception
Head CT-no acute changes
Awake alert oriented nontoxic-appearing
Cardiovascular system S1-S2 appreciated
Chest clear to auscultation
Abdomen soft, mild discomfort in the right flank area with palpation
NO rashes
# Sepsis present on admission with Gram-negative bacteremia now
Source likely urinary source pyelonephritis on the right side she has mild CVA tenderness
Zosyn changed to Ceftriaxone
Repeat blood cultures added
Abnormal urine analysis noted but urine culture pending
Infectious disease consultation
# 3 weeks -issues with decreased milk production. it consultant and WIRELINE FIELD OPERATOR consulted . She just pumped 4 ounces now.
Patient denies any abnormal or foul-smelling discharge
# Preeclampsia-continue nifedipine and follow blood pressures
# Anemia- Likely Postpartom - check iron and B12 studies
# Diabetes-hemoglobin [id number] on
Patient has an insulin pump
Accu-Cheks
Basal rate is
12 AM-1 unit/h
3 AM-1.04 units/h
6 AM-1.34 units/h
3:30 PM 1.5 units/h
8:30 PM 1.3 units/h
Carb counting ratio for breakfast 1 : 4, for lunch 1:3, 8:30 PM 1:3, 12 AM 1:6.
Monitor blood sugars AC and at bedtime
# Hypothyroidism-continue levothyroxine 88 mcg daily
History of Christianne thyroiditis
# Slight elevation of LFTS- Likely from sepsis- Watch and follow
# PCOS
# Obesity with a BMI of 39
# DVT prophylaxis-Lovenox
# Full code
D/W ObGyn
Discussed with infectious disease
D/W RN
Part of this note was created using voice recognition system. Occasional wrong word or��sound alike� substitutions may have inadvertently occurred due to the inherent limitations of voice recognition software. If noted kindly bring it to my
attention for correction.
Anticipated Discharge: 24 - 48 hours
Subjective/Interval History
-
Date of Service: December 16, 2024
Objective Data
-
Labs:
Laboratory Results
12/16/24
07:51
WBC 11.5 H
Hgb 9.4 L
Hct 29.6 L
Plt Count 213 D
Sodium 135
Potassium 3.8
Chloride 106
Carbon Dioxide 26
BUN 11
Creatinine 0.6
Glucose 128 H
Calcium 8.6
Vital Signs:
Vital Signs
Temp Pulse Resp BP Pulse Ox
99 F 112 17 151/91 96
12/16/24 07:00 12/16/24 09:02 12/16/24 07:00 12/16/24 09:02 12/16/24 07:00
I&O
12/15/24 12/16/24 12/17/24
06:59 06:59 06:59
Intake Total 480 / 480
Balance 480 / 480
[2024-12-16] MEDS: PT'S OWN INSULIN PUMP - HumaLOG 8.77 UNIT SC (10:04)
[2024-12-16] MEDS: STERILE WATER FOR INJECTION 20 ML IV (10:10)
[2024-12-16] MEDS: ROCEPHIN 2000 MG IV (10:10)
[2024-12-16 10:37] LABS: ALT (SGPT) 35 U/L (0-35); AST (SGOT) 28 U/L (14-36); Albumin 3.2 g/dl (3.5-5.0); Alkaline Phosphatase 80 U/L (38-126); Total Protein 5.7 g/dl (6.3-8.2)
[2024-12-16 10:55] LABS: Glycohemoglobin (HgbA1c) 6.0 % (4.0-5.6)
[2024-12-16 13:13] LABS: Glucose - Point of Care 221 mg/dl (70-99)
--- NOTE | 2024-12-16 14:08 | CON.MD ---
Consultation - Medical
-
Consult:
HPI: Patient is a 39yo s/p RLTCS on 11/25 for preeclampsia with severe features who presented to the ED with complaints of right sided back pain. She said she had back pain for a few days and then it suddenly got worse. She was also having
dizziness. While waiting in the ED, she says she suddenly developed fevers and chills. She has no abdominal pain, her incision has been healing well with no signs of infection. She said she had difficulty pumping yesterday, but has been fine today
and has no signs of mastitis. Her lochia has been minimal to mild with no clots. She has had intermittent headaches but they are relieved by Tylenol. She denies vision changes, chest pain, shortness of breath or RUQ pain. The baby is in the NICU and
is likely going to be discharged today or tomorrow. In the ED, she was febrile with a Tmax of 102.5. She had a white count with left shift and was tachycardic, meeting criteria for sepsis. Prelim blood cultures positive for E coli. CT showed a
ruptured cyst of the right kidney. Pelvic ultrasound with complex fluid in the endometrial canal, likely representing blood products.
PMHx: Type 1DM, hypothyroidism, PCOS, obesity, PEC w/ SF
Meds: insulin pump, Synthroid, PNV, iron, Procardia 60 XL qD
Surghx: C/Sx2, appendectomy, wisdom teeth, IVF
NKDA
Socialhx: denies tobacco, etoh or illicit drug use
Famhx: MGF w/ colon ca, father w/ DM
OBHX: C/Sx2 for PEC w/ SF
O
BP 113/75->151/92, VSS, Temp 99
General: well appearing
Cardio: tachycardic
Abd: soft, nontender, incision c/d/i
Ext: nontender
A/P: 39yo s/p RLTCS on 11/25 for PEC w/ SF, admitted with sepsis, bacteremia, and pyelonephritis
status
- continue routine PP care
- Patient seen by consultant technology today. No concern for mastitis. Patient encouraged to continue pumping
- No signs of endometritis
- Pelvic US with complex fluid in the endometrial canal. Patient has no symptoms of retained products. Likely represents blood products
PEC w/ SF
- continue Procardia 60XL qD. BPs have been well controlled
- LFTs mildly elevated- continue to trend
- No s/sx of worsening PEC
Bacteremia
Sepsis
Pyelonephritis
- Source of infection appears to be pyelonephritis. No concern for endometritis or mastitis at this time.
- Blood cultures prelim positive for E coli
- continue antibiotic per primary team and ID
[2024-12-16] MEDS: PT'S OWN INSULIN PUMP - HumaLOG 11.43 UNIT SC (14:48)
[2024-12-16 15:30] VITALS: BP 130/79
[2024-12-16 17:01] LABS: Glucose - Point of Care 258 mg/dl (70-99)
[2024-12-16] MEDS: PT'S OWN INSULIN PUMP - HumaLOG 18.57 UNIT SC (18:37)
[2024-12-16] MEDS: LOVENOX 40 MG SC (19:18)
[2024-12-16 21:46] LABS: Glucose - Point of Care 185 mg/dl (70-99)
[2024-12-16] MEDS: PT'S OWN INSULIN PUMP - HumaLOG 15 UNIT SC (22:31)
[2024-12-16] MEDS: MOTRIN 600 MG PO (22:33)
[2024-12-16 23:17] VITALS: BP 131/76
[2024-12-17] MEDS: SYNTHROID 88 MCG PO (05:24)
[2024-12-17 07:32] VITALS: BP 127/71
[2024-12-17 07:33] LABS: Glucose - Point of Care 182 mg/dl (70-99)
[2024-12-17] MEDS: PROCARDIA XL (EXTENDED RELEASE) 60 MG PO (09:23)
[2024-12-17] MEDS: FEOSOL 325 MG PO (09:23)
[2024-12-17] MEDS: STERILE WATER FOR INJECTION 20 ML IV (09:23)
[2024-12-17] MEDS: PRENATAL PLUS 1 TABLET PO (09:23)
[2024-12-17] MEDS: ROCEPHIN 2000 MG IV (09:24)
[2024-12-17] MEDS: PT'S OWN INSULIN PUMP - HumaLOG 12.44 UNIT SC (09:29)
[2024-12-17 11:00] LABS: Hematocrit 28.7 % (37.0-47.0); Hemoglobin 9.1 g/dL (12.0-16.0); Mean Corp Hgb Conc. 31.7 g/dL (33.0-37.0); Mean Corpuscular Volume 85.2 fL (81.0-99.0); Platelet Count 209 10^3/uL (130-400); Red Cell Dist. Width 16.9 % (11.5-14.5)
--- NOTE | 2024-12-17 11:02 | CM ---
Reviewed the chart notes and spoke with the patient at the bedside. The patient's is currently in NICU. The patient resides with spouse and son in a two story home with one step to enter. The patient reports only DME is a breast pump. No
VN or SNF in the past. The patient confirmed her pharmacy of choice is [facility] [address] [place]. CM continues to be available to patient/family and is monitoring medical plan for needs at discharge.
Plan: Discharge to home when medically stable. No additional needs anticipated at this time.
[2024-12-17 11:13] LABS: Blood Urea Nitrogen 12 mg/dl (7-17); Calcium 8.6 mg/dl (8.4-10.2); Carbon Dioxide 26 mmol/L (22-30); Chloride 104 mmol/L (98-107); Estimated Creatinine Clearance > 125 ml/min; Glucose 269 mg/dl (70-99); Potassium 3.9 mmol/L (3.5-5.1); Sodium 134 mmol/L (135-145); eGFR > 60.00
--- NOTE | 2024-12-17 11:17 | W.PN.HOSP.TC ---
Addendum entered and electronically signed by Su Andres MD 12/17/24 14:02:
Patient noticed swelling of the legs when she was in the shower.
She said that she had this when she was and then it got better but slightly more today.
Will get an ultrasound prior to discharge
Addendum entered and electronically signed by Su Andres MD 12/17/24 13:30:
Discussed with infectious disease okay for discharge
Discharge papers done and prescription sent
visit and Discharge coordination time more than 30 minutes
Original Note:
Today's Communication/Plan
-
Continue ceftriaxone
Await sensitivities
Assessment / Plan
Assessment / Plan
39 y/o female with right lower to mid back pain. Started on 12/15/2024 also with some chills. She is 3 weeks . History of preeclampsia on nifedipine.
Patient delivered at 34.5 weeks by transverse section for preeclampsia. Discharged on 11/28/2024. Patient had mild back discomfort for the past couple of days yesterday stress really bad more towards a right flank area. When asked if she
had urinary symptoms states that she had increased frequency and she has been drinking more water
Transvaginal ultrasound-within the lower uterine segment canal and extending to the superior cervical canal ovoid complex predominantly hypoechoic collection likely complex fluid likely represent blood products within the endometrial canal
Transabdominal USS- Enlarged uterus. Poor visualization.Hypoechoic region within the central lower uterine segment, suggestive of fluid. No increase in vascularity by color flow.Neither ovary is able to be visualized. No evidence for abnormal
adnexal mass or free pelvic fluid.
Chest x-ray unremarkable
CT abdomen pelvis-2 cm cyst arising from the posterior upper pole of the right kidney. Mild adjacent perinephric space edema suggestive of possible partially ruptured cyst. Enlarged uterus compatible with state increased density within
the uterine endometrial canal possible retained products of conception
Head CT-no acute changes
Awake alert oriented nontoxic-appearing
Cardiovascular system S1-S2 appreciated
Chest clear to auscultation
Abdomen soft, mild discomfort in the right flank area with palpation
No complaints of breast tenderness or discharge. She is able to pump good amount of milk
# E. coli sepsis
Source likely urinary source pyelonephritis on the right side she has mild CVA tenderness
Continue ceftriaxone
Repeat blood cultures were canceled yesterday
Urine cultures with E. coli
Infectious disease consultation appreciated
# 3 weeks -issues with decreased milk production. financial services consultant and CORPORATE COMMUNICATIONS SPECIALIST following. No problems with pumping now.
# Preeclampsia-continue nifedipine and follow blood pressures
# Anemia- Likely Postpartom - check iron and B12 studies
# Diabetes-hemoglobin A1c-6.0
Patient has an insulin pump
Accu-Cheks
Basal rate is
12 AM-1 unit/h
3 AM-1.04 units/h
6 AM-1.34 units/h
3:30 PM 1.5 units/h
8:30 PM 1.3 units/h
Carb counting ratio for breakfast 1 : 4, for lunch 1:3, 8:30 PM 1:3, 12 AM 1:6.
Monitor blood sugars AC and at bedtime
# Hypothyroidism-continue levothyroxine 88 mcg daily
History of Christianne thyroiditis
# Slight elevation of LFTS- Likely from sepsis-normalized
# PCOS
# Obesity with a BMI of 39
# DVT prophylaxis-Lovenox
# Full code
D/W RN
Part of this note was created using voice recognition system. Occasional wrong word or��sound alike� substitutions may have inadvertently occurred due to the inherent limitations of voice recognition software. If noted kindly bring it to my
attention for correction.
Anticipated Discharge: Within 24 hours
Subjective/Interval History
-
Date of Service: December 17, 2024
Objective Data
-
Labs:
Laboratory Results
12/17/24
10:33
WBC 7.9
Hgb 9.1 L
Hct 28.7 L
Plt Count 209
Sodium 134 L
Potassium 3.9
Chloride 104
Carbon Dioxide 26
BUN 12
Creatinine 0.5 L
Glucose 269 H
Calcium 8.6
Vital Signs:
Vital Signs
Temp Pulse Resp BP Pulse Ox
98.2 F 81 16 127/71 95
12/17/24 07:32 12/17/24 09:23 12/17/24 07:32 12/17/24 09:23 12/17/24 07:32
I&O
12/16/24 12/17/24 12/18/24
06:59 06:59 06:59
Intake Total 480 / 480 580 / 580
Balance 480 / 480 580 / 580
--- NOTE | 2024-12-17 11:17 | W.PN.OBG.DWH ---
Today's Communication / Plan
-
- continue antibiotics per ID and primary team
Assessment/Plan
-
39yo s/p RLTCS on 11/25 for PEC w/ SF, admitted with sepsis, bacteremia, and pyelonephritis
status
- continue routine PP care
- No signs of endometritis or mastitis. Patient continues to pump
- Pelvic US with complex fluid in the endometrial canal. Patient has no symptoms of retained products. Likely represents blood products
PEC w/ SF
- continue Procardia 60XL qD. BPs have been well controlled
- LFTs mildly elevated- continue to trend
- No s/sx of worsening PEC
Bacteremia
Sepsis
Pyelonephritis
- Source of infection appears to be pyelonephritis. No concern for endometritis or mastitis at this time.
- Blood cultures and urine culture prelim positive for E coli
- continue antibiotic per primary team and ID
Subjective Data
-
No complaints. Still having back pain, but overall improved. Baby getting discharged from NICU today. No heavy lochia. Voiding spontaneously. +BM. Denies headache, vision changes, chest pain, SOB or RUQ pain.
Objective Data
-
Laboratory Results
12/17/24 10:33
12/17/24 10:33
Vital Signs
Temp Pulse Resp BP Pulse Ox
98.2 F 81 16 127/71 95
12/17/24 07:32 12/17/24 09:23 12/17/24 07:32 12/17/24 09:23 12/17/24 07:32
General: well appearing
Abd: soft, nontender, incision c/d/i
[2024-12-17 11:57] LABS: Glucose - Point of Care 246 mg/dl (70-99)
--- NOTE | 2024-12-17 12:03 | W.PN.ID1 ---
Date of Service
Date of Service: December 17, 2024
Today's Communication
DC ceftriaxone (d3)
- Tomorrow start cephalexin 1000mg po q8h through 12/28/24.
- OK for DC home.
Assessment / Plan
# Complicated UTI/R pyelo
# E. coli bacteremia
# Fever resolved
# Leukocytosis resolved
# Post- C section 11/25/24
# DM1
- DC ceftriaxone (d3)
- Tomorrow start cephalexin 1000mg po q8h through 12/28/24.
- OK for DC home.
Chief Complaint
-: UTI and Bacteremia
Subjective / Review of Systems
Feels much improved. Back/flank pain subsiding.
Vital Signs / Physical Exam
Vital Signs
Vital Signs
Temp Pulse Resp BP Pulse Ox
98.2 F 81 16 127/71 95
12/17/24 07:32 12/17/24 09:23 12/17/24 07:32 12/17/24 09:23 12/17/24 07:32
Physical Exam
Constitutional: No Acute Distress and Comfortable
Cardiovascular: Regular Rate and S1/S2
Pulmonary: Clear
Gastrointestinal: Soft, Non Tender, Non Distended and Normal Bowel Sounds
Genito-Urinary: CVA Tenderness (minimal right)
Neurological: AO x 3
Objective Data
Lab Data
Lab Results
12/17/24 10:33
12/17/24 10:33
Estimated Creat Clear > 125 ml/min 12/17/24 10:33
Lactic Acid Cancelled 12/15/24 23:00
Total Bilirubin 0.7 mg/dl (0.2-1.3) 12/16/24 07:51
AST 28 U/L (14-36) 12/16/24 07:51
ALT 35 U/L (0-35) 12/16/24 07:51
Alkaline Phosphatase 80 U/L (38-126) 12/16/24 07:51
Most recent labs reviewed.
Micro Results:
12/15/24 20:27 Urine Culture - Preliminary
Urine Gram negative bacilli
12/15/24 19:02 Blood Culture - Preliminary
Blood/Venous Escherichia coli
Gram Stain - Final
12/15/24 19:02 Blood Culture - Preliminary
Blood/Venous Escherichia coli
Gram Stain - Final
12/15/24 17:59 Urine Culture - Final
Urine Escherichia coli
12/16/24 07:51 Blood Parasites Smear - Final
Blood/Venous
12/15/24 Transvaginal US: Within the lower uterine segment canal and extending into the superior cervical canal, ovoid complex predominately hypoechoic collection, which is likely complex fluid
12/15/24 CXR: No evidence of active cardiopulmonary disease.
12/15/24 CT a/P: Two centimeter cyst arising from the posterior upper pole the right kidney. Mild adjacent perinephric space edema, suggesting the possibility of partially ruptured cyst. Enlarged uterus compatible with state. Increased
density within the lower uterine endometrial canal, likely within normal limits in this patient, but please correlate with any abnormal bleeding that would suggest retained products of conception.
Care Review
Plan reviewed with: Physician (Dr. Andres)
[2024-12-17 12:12] LABS: Iron 24 ug/dl (37-170)
[2024-12-17 12:21] LABS: Total Iron Binding Capacity 227 ug/dl (265-497)
[2024-12-17] MEDS: PT'S OWN INSULIN PUMP - HumaLOG 15.5 UNIT SC (12:25)
[2024-12-17 12:54] LABS: Ferritin 44.7 ng/ml (6.24-137)
[2024-12-17 13:08] LABS: Vitamin B12 625 pg/ml (239-931)
--- NOTE | 2024-12-17 13:29 | W.DS.TRANS ---
Addendum entered and electronically signed by Su Andres MD 12/18/24 16:17:
Dictation- [id number]
Original Note:
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
-
Discharge Instructions:
Discharge Diagnosis/Procedures Pyelonephritis-E. coli
Preeclampsia
Anemia
Diabetes
Hypothyroidism
Diet As tolerated
Activity As tolerated
Additional Activity Follow-up post section instructions
Driving Restrictions As prior to admission
Blood Work CBC, CMP 1 week. Thyroid function tests 6 weeks
( call pcp for scripts)
Instructions:
Stand-Alone Forms:
Changes to Home Medications: Yes
Discharge Medications:
DC Medications w/original date entered in [facility]
insulin lispro 100 unit/mL subcutaneous cartridge (Humalog U-100 Insulin) 1 sliding scale dose SC DIRECTED Diabetes 01/20/22
levothyroxine 100 mcg tablet 88 mcg PO DAILY Thyroid 01/20/22
prenat.vits,prasanth,eku-hnig-ppbbq 1 tab PO DAILY Supplement 01/20/22
Metamucil Gummies 1 tab PO PRN PRN constipation 01/26/22
cephalexin 500 mg capsule 1,000 mg (2 x 500 mg) PO TID Infection #66 caps 12/17/24
ferrous sulfate 325 mg (65 mg iron) tablet (FeroSul) 325 mg PO BID anemia #90 tabs 12/17/24
nifedipine 60 mg tablet,extended release 60 mg PO DAILY Blood pressure #42 tabs 12/17/24
Home Medication Changes
Ibuprofen stopped
Keflex is new
Pending Results: No
[2024-12-17 16:20] VITALS: BP 147/81
[2024-12-18 12:06] LABS: Lyme Antibody Screen, EIA Negative (Negative)
== END 2024-12-17 17:28 | disposition home or self-care (01) | DRG 872 ==
LOC: 2 NORTH 22:01
PROVIDERS: ADMITTING PHYSICIAN Internal Medicine; ATTENDING PHYSICIAN Hospitalist; CONSULT PHYSICIAN Internal Medicine Infectious Disease; CONSULT PHYSICIAN Student in an Organized Health Care Education/Training Program; EMERGENCY PHYSICIAN Emergency Medicine; FAMILY PHYSICIAN Nurse Practitioner Adult Health
DX: A41.51 Sepsis due to Escherichia coli [E. coli] (principal); O86.21 Infection of kidney following delivery; N12 Tubulo-interstitial nephritis, not specified as acute or chronic; O24.03 Pre-existing type 1 diabetes mellitus, in the puerperium; B96.20 Unspecified Escherichia coli [E. coli] as the cause of diseases classified elsewhere; O14.95 Unspecified pre-eclampsia, complicating the puerperium; O99.03 Anemia complicating the puerperium; Z79.890 Hormone replacement therapy; Z79.4 Long term (current) use of insulin; E06.3 Autoimmune thyroiditis; O99.285 Endocrine, nutritional and metabolic diseases complicating the puerperium; N85.2 Hypertrophy of uterus; Z96.41 Presence of insulin pump (external) (internal); E28.2 Polycystic ovarian syndrome; E66.813 Obesity, class 3; N28.1 Cyst of kidney, acquired; O99.215 Obesity complicating the puerperium; Z68.39 Body mass index [BMI] 39.0-39.9, adult
CPT/HCPCS: 70450; 71046; 74177; 76830; 76856; 80048; 80053; 81003; 81015; 82248; 82607; 82728; 82962; 83036; 83540; 83550; 83605; 84439; 84443; 85025; 85027; 86618; 87015; 87040; 87077; 87086; 87088; 87154; 87186; 87205; 87207; 87811; 93970; 96361; 96365; 99291; Q9967